=== PATIENT | female | born 1985 | race Two or more races ===

== ENCOUNTER 2024-07-16 08:37 | Emergency (ER) | payer OTHER ==
[~2024-07-16] VITALS: Ht 160 cm; Wt 59.0 kg
[2024-07-16] MEDS ORDERED: ZOLOFT100 MG PO (08:46)
[2024-07-16 09:40] LABS: HEMATOCRIT 38.2 % (36.0-45.00); HEMOGLOBIN 13.5 g/dL (12.0-15.00); MEAN CORPUSCULAR HEMOGLOBIN 33.3 pg (27.00-32.0); MEAN CORPUSCULAR HGB CONC 35.4 g/dl (32.0-36.0); PLATELET COUNT 170 K/uL (150-450); RED BLOOD COUNT 4.07 M/uL (4.00-6.00); RED CELL DISTRIBUTION WIDTH 12.6 % (11.5-14.5)
[2024-07-16 09:56] LABS: COVID-19 AG NEGATIVE (NEGATIVE)
[2024-07-16 09:58] LABS: INFLUENZA A AG POSITIVE (NEGATIVE)
== END 2024-07-16 10:12 | disposition home or self-care (01) ==
LOC: ER 08:37
PROVIDERS: General Practice
DX: J10.1 Influenza due to other identified influenza virus with other respiratory manifestations (principal)